=== PATIENT | female | born 2000 | race Caucasian/White ===

== ENCOUNTER 2022-04-10 21:55 | Emergency (ER) | payer BC, SELFPAY ==
[2022-04-10 22:03] VITALS: BP 102/78; PULSE 78; RESP 16; TEMP 36.7; O2SAT 100; BMI 21.9
--- NOTE | 2022-04-10 22:22 | ED_ITS ---
HPI - Burn/Smoke Inhalation General Chief complaint: Burn/Smoke Inhalation Stated complaint: Burn around the mouth Time Seen by Provider: 04/10/22 21:57 History of Present Illness HPI Narrative: Pt is a 22 year old [employer] student who is up to date on her tetanus shot who burned her external upper lip with hot tea tonight. The burn occurred just before coming in. Pain is moderate. She did not significantly burn her nasal or oral mucosa. Pt has had no blistering or skin breakdown. The area of the burn is roughly 3 by 5 cm and does involve the abhijit border. Pt has had no fever or chills. No other symptoms. Pt did not take any medication prior to coming in. Related Data Home Medications Medication Instructions Recorded Confirmed fluticasone propionate 50 1 spray intranasal QDAY 12/10/21 12/27/21 mcg/actuation nasal spray,suspension (Flonase Allergy Relief) Allergies Allergy/AdvReac Type Severity Reaction Status Date / Time No Known Drug Allergies Allergy Verified 04/01/22 09:02 Review of Systems Status of ROS: Reports: 6 or more systems reviewed and unremarkable except as noted in History and below [facility] Social History Smoking Status: Never smoker Do you use any of these nicotine containing products: None Second hand tobacco smoke exposure: No How often do you have a drink containing alcohol: monthly or less How many standard drinks containing alcohol do you have on a typical day: 1 or 2 How often do you have six or more drinks on one occasion: Never AUDIT-C Alcohol total score: 1 Non-prescribed substance use: denies use service: No Exam Narrative: Exam Narrative: EXAM GENERAL: Patient appears comfortable and well. EYES: No scleral icterus. ENT: Tympanic membranes and oropharynx normal. THYROID: no thyroid nodules or thyromegaly. LYMPH: No supraclavicular or cervical lymphadenopathy. SKIN: Area of erythema noted on the upper lip as described above EXT: No dependent lower extremity pedal edema. HEART: Regular rate and rhythm with no murmurs, rubs, or gallops. LUNGS: Clear to auscultation bilaterally with no crackles or wheezes. ABD: Soft, non tender, non distended. PSYCH: Good eye contact, speech is not pressured. Const: Vital Signs, click to edit/add: Vital Signs - 24 hr 04/10/22 22:03 Temperature 98.0 F Pulse Rate [Pulse Oximeter] 78 Respiratory Rate 16 Blood Pressure [Le ft Upper Arm] 102/78 Pulse Oximetry 100 Oxygen Delivery Me thod Room Air Course Course Hospital Course: Pt seen and examined. Pt has a first degree external burn. Pt will be treated symptomatically with tylenol, motrin and cool compresses. Follow up as needed. Vital Signs Vital signs: Initial Vital Signs Temperature 98.0 F 04/10/22 22:03 Temperature Source Temporal Artery Scan 04/10/22 22:03 Pulse Rate 78 04/10/22 22:03 Pulse Rhythm 04/10/22 22:03 Respiratory Rate 16 04/10/22 22:03 Blood Pressure 102/78 04/10/22 22:03 Blood Pressure Mean 86 04/10/22 22:03 Pulse Oximetry 100 04/10/22 22:03 Oxygen Delivery Method 04/10/22 22:03 Vital Signs Temperature 98.0 F 04/10/22 22:03 Pulse Rate 78 04/10/22 22:03 Respiratory Rate 16 04/10/22 22:03 Blood Pressure 102/78 04/10/22 22:03 Pulse Oximetry 100 04/10/22 22:03 Oxygen Delivery Method 04/10/22 22:03 Temperature 98.0 F 04/10/22 22:03 Pulse Rate 78 04/10/22 22:03 Respiratory Rate 16 04/10/22 22:03 Blood Pressure 102/78 04/10/22 22:03 Pulse Oximetry 100 04/10/22 22:03 Oxygen Delivery Method 04/10/22 22:03 Discharge Plan Discharge Clinical Impression: First degree burn Patient Disposition: Home, Self-Care Condition: Stable Additional Instructions: Tylenol Motrin Moisturizer Cool Compresses Follow up as needed Activity Level: No Restrictions Discharge Diet: Regular Prescriptions: No Action fluticasone propionate [Flonase Allergy Relief] 50 mcg/actuation spray,suspension 1 spray intranasal QDAY Rx Instructions: administer into each nostril Follow Up/Referrals: Provider,Not a Local [Primary Care Provider] - Stand Alone Forms: MyHealth Info Instructions [place] [place] Burn Citation [email or web address]
== END 2022-04-10 22:51 | disposition home or self-care (01) ==
LOC: ED 22:46
PROVIDERS: Emergency Provider Internal Medicine
DX: T20.12XA Burn of first degree of lip(s), initial encounter (principal); X10.0XXA Contact with hot drinks, initial encounter
CPT/HCPCS: 99282; 99283